=== PATIENT | male | born 1995 | race Caucasian/White ===

== ENCOUNTER 2021-05-05 19:41 | Emergency (ER) | payer OTHER, SELFPAY ==
--- NOTE | ~2021-05-05 | CT_ITS ---
EXAMINATION: CT abdomen pelvis w con DATE: 05/06/2021 01:30 INDICATION: Right groin swelling and injury. TECHNIQUE: Computed tomography (CT) of the abdomen and pelvis was performed with 100 mL Omnipaque 350 intravenous contrast. Automated exposure control and iterative reconstruction technique were employe d. The dose-length product was 189.45 mGy-cm. COMPARISON: None. FINDINGS: The visualized portions of the lung bases are clear without pneumonia or pleural effusion. The heart size is normal. No pericardial effusion. The liver, gallbladder, spleen, pancreas, adrenal glands, and kidneys are normal. There are no dilated loops of bowel. The appendix is normal. There is fat stranding in the right inguinal region and extraperitoneal anterior and right pelvis, consistent with hematoma. There is enlargement of the right rectus abdominis muscle, consistent with hematoma. There is thrombosis of right external iliac artery and right common femoral artery. There is a dissec tion of right common femoral artery and superficial femoral artery. L4 is a limbus vertebra. IMPRESSION: 1. Thrombosis of right external iliac artery and right common femoral artery. Dissection of right com mon femoral artery and superficial femoral artery. 2. Hematoma in right pelvis involving the extraperitoneal fat and right rectus abdominis muscle. Reviewed, dictated and finalized at location A. IMPRESSION: 1. Thrombosis of right external iliac artery and right common femoral artery. D issection of right common femoral artery and superficial femoral artery. 2. Hematoma in right pelvis involving the extraperitoneal fat and right rectus abdominis muscle.
[2021-05-05 19:49] VITALS: BP 130/73; PULSE 86; RESP 16; TEMP 36.4; O2SAT 100
[2021-05-05 21:38] VITALS: BP 121/78; PULSE 86; RESP 18; TEMP 37.7; O2SAT 97
[2021-05-05 23:41] VITALS: BP 127/82; PULSE 80; RESP 18; O2SAT 98
[2021-05-06 00:37] LABS: Basophils Percent Auto 0.2 % (0.2-1.2); Hematocrit 39.6 % (42.0-52.0); Hemoglobin 13.6 g/dL (14.0-18.0); Immature Granulocyte Absolute 0.07 K/mm3 (0.00-0.031); Immature Granulocyte Percent A 0.5 % (0-0.5); Lymphocytes Absolute Auto 1.46 K/mm3 (0.9-3.2); Lymphocytes Percent Auto 9.5 % (18.3-44.2); Mean Corpuscular HGB Conc 34.3 g/dl (32-36); Mean Corpuscular Hemoglobin 32.5 pg (26-34); Mean Corpuscular Volume 94.7 fl (80-100); Mean Platelet Volume 9.6 fl (7.4-10.4); Monocytes Absolute Auto 1.1 K/mm3 (0.1-0.6); Monocytes Percent Auto 7.4 % (2.6-8.5); Neutrophils Absolute Auto 12.6 K/mm3 (1.3-6.7); Neutrophils Percent Auto 82.4 % (45.5-73.1); Platelet Count Result 310 k/mm3 (150-375); Red Blood Count 4.18 M/mm3 (4.6-6.20); Red Cell Distribution Width 12.3 % (11.5-14.5); White Blood Count 15.3 K/mm3 (4.5-10.0)
[2021-05-06 00:44] LABS: Add Urine Microscopic? YES; Appearance Urine Clear (Clear); Bacteria Urine Trace /hpf; Bilirubin Urine Negative (Negative); Blood Urine Negative (Negative); Color Urine Yellow (Yellow); Glucose Urine UA Negative (Negative); Ketones Urine 1+ mg/dL (Negative); Leukocyte Esterase Ur Negative LEU/UL (Negative); Mucus Urine Rare /lpf; Nitrate Urine Negative (Negative); Protein Urine Negative (Negative); Specific Grav Ur 1.025 (1.001-1.035); Urobilinogen Urine Negative mg/dL (<2.0); WBC Urine 0-3 /hpf
[2021-05-06 00:48] LABS: Alanine Aminotransferase 15 U/L (4-50); Alkaline Phosphatase 55 U/L (38-126); Anion Gap 15 mmol/L (8-16); Aspartate Amino Transferase 36 U/L (17-59); Bilirubin,Total 0.4 mg/dL (0.2-1.3); Blood Urea Nitrogen 7 mg/dL (9-20); Calcium 9.2 mg/dL (8.4-10.2); Carbon Dioxide 22 mmol/L (22-30); Chloride 104 mmol/L (98-107); Estimated CRCL calculation 114 ml/min; Estimated Glomerular Filt Rate > 60; Glucose 114 mg/dL (65-110); Lipase 53 U/L (23-300); Potassium 4.3 mmol/L (3.4-5.0); Sodium 141 mmol/L (137-145)
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
[2021-05-06] MEDS: SODIUM CHLORIDE 0.9% IV 1,000 ML 999 ML IV CONT (01:04)
[2021-05-06] MEDS: TETANUS,DIPHTHERIA,AC PERTUSSIS ADULT (0.5 ML) BOOSTRIX IM (01:05)
[2021-05-06] MEDS: ONDANSETRON INJ 4 MG/2 ML VIAL IV PUSH (01:05)
[2021-05-06] MEDS: HYDROmorphone HCL INJ (*CRX) 1 MG/ML SYR 0.5 MG IV PUSH ×2 (01:05→04:32)
--- NOTE | 2021-05-06 01:22 | PC.NURSE ---
Patient taken to CT via stretcher.
[2021-05-06 02:43] VITALS: BP 125/80; PULSE 90; RESP 17; O2SAT 98
[2021-05-06 04:35] VITALS: BP 141/79; PULSE 88; RESP 17; TEMP 37.3; O2SAT 97
== END 2021-05-06 04:38 | disposition short-term general hospital (02) ==
LOC: ANHED 23:59
PROVIDERS: Emergency Provider General Practice
DX: S36.898A Other injury of other intra-abdominal organs, initial encounter (principal); F17.290 Nicotine dependence, other tobacco product, uncomplicated; Z23 Encounter for immunization; V18.4XXA Pedal cycle driver injured in noncollision transport accident in traffic accident, initial encounter
CPT/HCPCS: 36415; 74177; 80053; 81001; 83690; 85025; 90471; 90715; 96361; 96374; 96375; 96376; 99285; J1170; J2405; J7030; Q9967

== ENCOUNTER 2023-02-06 23:37 | Emergency (ER) | payer OTHER, SELFPAY ==
--- NOTE | ~2023-02-06 | XR_ITS ---
XR hand RT min 3V, XR wrist RT min 3V 02/07/2023 06:12 INDICATION: Right hand and wrist pain after dog bite PROCEDURE: 3 views right hand and 4 views right wrist COMPARISON: No prior studies for comparison. FINDINGS: Fracture, dislocation or subluxation is not identified. The soft tissues appear within norm al limits. No foreign bodies are identified. IMPRESSION: 1: NO ACUTE BONE OR JOINT ABNORMALITY IDENTIFIED. Reviewed, dictated and finalized at location A. IMPRESSION: 1: NO ACUTE BONE OR JOINT ABNORMALITY IDENTIFIED.
--- NOTE | ~2023-02-06 | XR_ITS ---
XR elbow LT min 3V 02/07/2023 06:12 INDICATION: Dog bite. PROCEDURE: 3 views left elbow COMPARISON: No prior studies for comparison. FINDINGS: Fracture, dislocation or subluxation is not identified. The soft tissues appear within norm al limits. No foreign bodies are identified. IMPRESSION: 1: NO ACUTE BONE OR JOINT ABNORMALITY IDENTIFIED. Reviewed, dictated and finalized at location A.
--- NOTE | ~2023-02-06 | XR_ITS ---
XR hand LT min 3V, XR wrist LT min 3V 02/07/2023 06:12 INDICATION: Dog bite. PROCEDURE: 3 views left hand and 4 views left wrist COMPARISON: No prior studies for comparison. FINDINGS: Fracture, dislocation or subluxation is not identified. There is developmental fusion of th e left second distal interphalangeal joint. The soft tissues appear within normal limits. No foreign bodies are identified. IMPRESSION: 1: NO ACUTE BONE OR JOINT ABNORMALITY IDENTIFIED. Reviewed, dictated and finalized at location A. IMPRESSION: 1: NO ACUTE BONE OR JOINT ABNORMALITY IDENTIFIED.
[2023-02-06 23:40] VITALS: BP 110/60; PULSE 71; RESP 14; TEMP 36.3; O2SAT 99
--- NOTE | 2023-02-07 01:13 | ED.ANIMALBIT ---
HPI - Animal Bite General Chief Complaint: Animal Bite Stated Complaint: hand injury after dog fight Time Seen by Provider: 02/07/23 00:51 History of Present Illness HPI narrative: 27-year-old male reports for evaluation for multiple lacerations to his upper extremities after he broke up a dog fight. Patient states both of his dogs started fighting and he attempted to break it up and was bitten multiple times in the hands and forearms. He has multiple abrasions and lacerations to his hands and wrists, and 2 superficial abrasions to his legs. He is reporting pain in his right wrist and left distal humerus. Denies difficulty with range of motion, fever or drainage. His last tetanus was 2 years ago. States his dogs are up-to-date on their vaccines. Denies other injuries acquired. Related Data Allergies Allergy/AdvReac Type Severity Reaction Status Date / Time Penicillins Allergy Unknown Verified 02/06/23 23:37 Review of Systems Review of Systems: CONSTITUTIONAL: Denies fever, chills EYES: Denies visual changes, redness, or discharge. ENT: Denies rhinorrhea, congestion, sore throat, or otalgia. CARDIOVASCULAR: Denies chest pain, palpitations, or edema. RESPIRATORY: Denies cough or dyspnea. GASTROINTESTINAL: Denies abdominal pain, nausea, vomiting, or diarrhea. GENITOURINARY: Denies dysuria or hematuria. SKIN: See HPI MUSCULOSKELETAL: See HPI NEUROLOGIC: Denies headache, numbness, dizziness, or weakness. PSYCHIATRIC: Denies anxiety or depression. [facility] Past Medical History Medical History Patient denies medical problems Social History Social History Smoking status: Current every day smoker Tobacco type: e-cigarettes/vaping Exam Narrative: GENERAL: Well-appearing, in no acute distress. HEAD: Normocephalic NECK: Supple. CHEST: No respiratory distress. Clear to auscultation, no adventitious breath sounds. HEART: Regular rate and rhythm. No murmur heard. Normal peripheral pulses. EXTREMITIES: Tenderness to the distal humerus overlying the bicep, tenderness throughout the right wrist with ecchymosis and edema. Full range of motion of all extremities. SKIN: Multiple scattered abrasions and superficial lacerations throughout the hands, wrists and forearms, bilateral tib-fib. 3 cm irregular and gaping laceration to the palmar aspect of the distal phalanx of the left third finger. 2 cm linear gaping laceration over the palmar aspect of the distal phalanx extending over the PIP of the left fourth finger. 0.5 cm superficial laceration over the dorsum of the PIP of the right third finger. 1.5 irregular gaping laceration to the palmar aspect of the third right distal phalanx. Bleeding controlled in all lacerations. No deep structures other than subcutaneous tissue visualized in the lacerations, no foreign bodies appreciated. Cap refill less than 2 in all fingers. Full range of motion of all fingers, wrist, and elbow. Radial pulse 2+ bilaterally. Sensation intact throughout. NEURO: No focal deficits. Alert and oriented x3. PSYCH: Normal mood and affect. Course Vital Signs Vital signs: Vital Signs Temperature 97.3 F L 02/06/23 23:40 Pulse Rate 71 02/06/23 23:40 Respiratory Rate 14 02/06/23 23:40 Blood Pressure 110/60 02/06/23 23:40 Pulse Oximetry 99 02/06/23 23:40 Oxygen Delivery Room Air 02/06/23 23:40 Temperature 97.3 F L 02/06/23 23:40 Pulse Rate 71 02/06/23 23:40 Respiratory Rate 14 02/06/23 23:40 Blood Pressure 110/60 02/06/23 23:40 Pulse Oximetry 99 02/06/23 23:40 Oxygen Delivery Room Air 02/06/23 23:40 Procedures Laceration Laceration 1: Site: hand Side (If applicable): left Description: irregular Depth: simple, single layer Local Anesthetic: lidocaine 1% (Digital block) Amount of anesthesia used (mL
[2023-02-07] MEDS: metroNIDAZOLE 250 MG TABLET 500 MG PO (02:05)
[2023-02-07] MEDS: HYDROcodone/acetaminophen (*CRX) 5-325 MG TABLET 1 TAB PO (02:05)
[2023-02-07] MEDS: DOXYCYCLINE HYCLATE 100 MG TABLET PO (02:16)
[2023-02-07 04:23] VITALS: BP 122/62; PULSE 75; RESP 17; O2SAT 96
== END 2023-02-07 04:52 | disposition home or self-care (01) ==
PROVIDERS: Emergency Provider Physician Assistant; PCP Internal Medicine
DX: S61.253A Open bite of left middle finger without damage to nail, initial encounter (principal); S61.255A Open bite of left ring finger without damage to nail, initial encounter; S61.252A Open bite of right middle finger without damage to nail, initial encounter; F17.290 Nicotine dependence, other tobacco product, uncomplicated; W54.0XXA Bitten by dog, initial encounter
CPT/HCPCS: 12002; 73080; 73110; 73130; 99284; A9270